=== PATIENT | female | born 1990 | race Hispanic/Latino ===

== ENCOUNTER 2018-12-03 08:53 | Day surgery (SDC) | payer MEDICAID ==
[2018-12-02 15:59] VITALS: BP 136/73
[2018-12-02 16:09] LABS: BASOPHILS % (AUTO) 1.1 % (0.0-5.0); EOSINOPHILS % (AUTO) 1.8 % (0.0-8.0); HEMATOCRIT 41.4 % (36-48); LYMPHOCYTES % (AUTO) 29.1 % (21.0-51.0); MEAN CORPUSCULAR HEMOGLOBIN 27.8 pg (27.0-33.0); MEAN CORPUSCULAR HGB CONC 32.9 g/dL (32.0-36.0); MEAN CORPUSCULAR VOLUME 84.7 fL (79-99); MONOCYTES % (AUTO) 6.2 % (3.0-13.0); NEUTROPHILS % (AUTO) 61.8 % (40.0-77.0); PLATELET COUNT (AUTO) 322 K/uL (130-400); RED BLOOD CELL COUNT(AUTO) 4.88 MIL/uL (4.00-5.50); RED CELL DISTRIBUTION WIDTH 15.2 % (11.0-15.5); WHITE BLOOD COUNT (AUTO) 8.8 K/uL (4.8-10.8)
[2018-12-02 16:11] LABS: APPEARANCE,URINE Clear (CLEAR); BILIRUBIN,URINE Negative (NEGATIVE); COLOR,URINE Yellow (YELLOW); GLUCOSE, URINE (UA) Negative (NEGATIVE); KETONES,URINE Negative (NEGATIVE); LEUKOCYTE ESTERASE ,URINE Trace (NEGATIVE); NITRATE,URINE Negative (NEGATIVE); OCCULT BLOOD,URINE Negative (NEGATIVE); PROTEIN,URINE Negative (NEGATIVE)
[2018-12-02 16:21] LABS: INR 0.92 (0.85-1.15); PROTHROMBIN TIME 9.7 SEC (9.6-11.6)
[2018-12-02 16:25] LABS: BACTERIA,URINE Rare /HPF (None Seen); RBC,URINE 0-1 /HPF (0-1); SQUAMOUS EPITHELIAL CELL,UR Moderate /HPF (0-2)
[2018-12-02 16:27] LABS: ALBUMIN 3.6 g/dL (3.5-5.0); BILIRUBIN,TOTAL 0.2 mg/dL (0.2-1.0); CREATININE 0.9 mg/dL (0.5-1.5); POTASSIUM 3.9 mmol/L (3.5-5.1); TOTAL PROTEIN, SERUM 7.9 g/dL (6.0-8.3)
--- NOTE | 2018-12-02 16:33 | NUR ---
UA INFORMED DR. LE OF ABNORMAL UA. NO ORDERS RECEIVED. PROCEED WITH PLANNED PROCEDURE.
[2018-12-03] VITALS (13 sets, daily range): BP systolic 89–150; BP diastolic 49–92
[~2018-12-03] VITALS: Ht 154.9 cm; Wt 148.1 kg
[~2018-12-03 08:53] MED LIST: CEFAZOLIN 3GM /D5W 100ML 100 ML IV PRN; OMEP40CA37 PO
[2018-12-03] MEDS ORDERED: LACTATED RINGERS 1000ML 1,000 ML IV ONE ×2 (09:00)
[2018-12-03] MEDS: CEFAZOLIN SODIUM 1 GM VIAL ONE ×2 (09:20→10:54)
--- NOTE | 2018-12-03 09:31 | NUR ---
POTENTIAL FOR INFECTION: WIPED LEFT HAND / LOWER ARM PER KATE ONEAL MA WITH RAUDEL: 2% CHLORHEXIDINE GLUCONATE CLOTH PATIENTS PRE-OP SKIN PREP.
[2018-12-03] MEDS ORDERED: LIDOCAINE PF 2% 5ML ABBOJECT ONE (10:01)
[2018-12-03] MEDS ORDERED: ROCURONIUM 10MG/1ML SYR 10 MG/ML ML ONE (10:02)
[2018-12-03] MEDS ORDERED: MIDAZOLAM HCL 1 MG/ML 2ML VIAL ONE (10:02)
[2018-12-03] MEDS ORDERED: PROPOFOL 10 MG/ML 20ML VIAL IV ONE ×2 (10:02→11:04)
[2018-12-03] MEDS ORDERED: FENTANYL CITRATE PF 50 MCG/1 ML 2ML VIAL ONE ×2 (10:02→11:33)
[2018-12-03] MEDS ORDERED: ONDANSETRON HCL 4 MG/2 ML VIAL ONE ×2 (10:03→12:26)
[2018-12-03] MEDS ORDERED: NEOSTIGMINE 5MG/5ML SYR IV ONE (11:37)
[2018-12-03] MEDS ORDERED: GLYCOPYRROLATE 1 MG/5 ML SYRINGE ONE (11:37)
[2018-12-03] MEDS ORDERED: ESMOLOL HCL 10 MG/ML 10 ML VIAL ONE (11:53)
[2018-12-03] MEDS ORDERED: KETOROLAC TROMETHAMINE 30MG/ML ONE (11:53)
[2018-12-03] MEDS ORDERED: MEPERIDINE-PF 25 MG/ML SYG ONE (11:54)
[2018-12-03] MEDS ORDERED: METOCLOPRAMIDE 10 MG/2 ML VIAL ONE (12:26)
--- NOTE | 2018-12-03 12:45 | NUR ---
POST OP RECEIVED PT FROM PACU, S/P LEFT CARPAL TUNNEL RELEASE SX. BULKY DRESSING TO LEFT ARM , NEUROVASCULAR CHECKS TO LEFT HAND WNL. PT AWAKE AND ALERT, NO DISTRESS NOTED. DENIED ANY PAIN OR DISCOMFORTS. ICE PACKS TO AREA. VS STABLE ON ARRIVAL. PT INSTRUCTED TO KEEP LEFT ARM ELEVATED ABOVE HEART LEVEL AT ALL TIMES. FAMILY AT BEDSIDE.
--- NOTE | 2018-12-03 13:10 | NUR ---
dc dc instructions given and reviewed with pt's sister in law. instructed to f/u with dr. norman. photo copy of orders provided to patient/family. left arm dressing dry and intact, neurovascular checks wnl. pt denies any pain or discomforts.
--- NOTE | 2018-12-03 13:20 | NUR ---
dc pt dc home via [place] , no distress noted. accompanied by sister in law.
== END 2018-12-03 13:20 | disposition home or self-care (01) ==
LOC: DAH 08:53
DX: M65.9 Synovitis and tenosynovitis, unspecified (principal); G56.02 Carpal tunnel syndrome, left upper limb; N92.6 Irregular menstruation, unspecified; K21.9 Gastro-esophageal reflux disease without esophagitis; E66.01 Morbid (severe) obesity due to excess calories; Z79.01 Long term (current) use of anticoagulants; Z79.899 Other long term (current) drug therapy; Z90.49 Acquired absence of other specified parts of digestive tract
CPT/HCPCS: 25115; 36415; 64721; 71045; 80053; 81001; 84703; 85025; 85610; 85730; 88304; 93005; A4649; A4930 ×2; A6223; A6446; J0690; J1885; J2001; J2175; J2250; J2405 ×2; J2704 ×2; J2710; J2765; J3010 ×2; J3490 ×2; J7120 ×2

== ENCOUNTER 2019-01-23 06:13 | Day surgery (SDC) | payer MEDICAID, OTHER ==
[2019-01-22 11:24] VITALS: BP 147/83
[~2019-01-23] VITALS: Ht 156.2 cm; Wt 148.4 kg
[2019-01-23] VITALS (17 sets, daily range): BP systolic 110–142; BP diastolic 58–90
[~2019-01-23 06:13] MED LIST changes: -CEFAZOLIN 3GM /D5W 100ML 100 ML IV PRN; +LORA10TA7 PO; +NORG1TAB14 PO
[2019-01-23] MEDS ORDERED: LACTATED RINGERS 1000ML 1,000 ML IV ONE (07:10)
--- NOTE | 2019-01-23 07:20 | NUR ---
POTENTIAL FOR INFECTION: SHAVED RIGHT HAND / LOWER ARM PER CARLY HERNANDEZ, FOLLOWED BY WIPING WITH RAUDEL: 2% CHLORHEXIDINE GLUCONATE CLOTH PATIENTS PRE-OP SKIN PREP.
[2019-01-23] MEDS ORDERED: MIDAZOLAM HCL 1 MG/ML 2ML VIAL ONE (07:21)
[2019-01-23] MEDS ORDERED: LIDOCAINE PF 2% 5ML ABBOJECT ONE (07:21)
[2019-01-23] MEDS ORDERED: LIDOCAINE HCL 4% LTA SOL 4 ML VIAL ONE (07:21)
[2019-01-23] MEDS ORDERED: PROPOFOL 10 MG/ML 20ML VIAL IV ONE (07:21)
[2019-01-23] MEDS ORDERED: FENTANYL CITRATE PF 50 MCG/1 ML 2ML VIAL ONE ×3 (07:22→08:46)
[2019-01-23] MEDS ORDERED: ROCURONIUM 10MG/1ML SYR 10 MG/ML ML ONE (07:22)
[2019-01-23] MEDS ORDERED: PHENYLEPHRINE HCL 10 MG/ML 1ML VIAL IV ONE (07:24)
[2019-01-23] MEDS: CEFAZOLIN SODIUM 1 GM VIAL ONE ×2 (07:24→07:30)
[2019-01-23] MEDS ORDERED: ONDANSETRON HCL 4 MG/2 ML VIAL ONE (07:27)
[2019-01-23] MEDS ORDERED: SUB TO ALBUTEROL 2.5MG/3ML NEBULES PER P&T IH ONE (07:40)
[2019-01-23] MEDS ORDERED: DEXAMETHASONE SOD PHOSPHATE 10MG/ML 1ML VIAL ONE (08:03)
[2019-01-23] MEDS ORDERED: NEOSTIGMINE 5MG/5ML SYR IV ONE (08:04)
[2019-01-23] MEDS ORDERED: GLYCOPYRROLATE 1 MG/5 ML SYRINGE ONE (08:04)
[2019-01-23] MEDS ORDERED: MORPHINE SULFATE 4 MG/1ML SYG ONE (09:32)
--- NOTE | 2019-01-23 09:50 | NUR ---
DR. LE NOTIFIED PT IN PAIN 11/04, RIGHT WRIST. DR. LE WANTS O2 SATS READINGS ON RT HAND. RT HAND SATS 98%, WITH GOOD CAPILLARY REFILL. DR. STEVENS PRESENT TO ASSESS PT. RT HAND ASSESSMENT WNL, DR. LE ORDERED TORADOL 30MG IV, AND DR. STEVENS AGREED. Addendum: 01/23/19 at 1010 by STORMY JOHNSON RN RN Amended: Links added.
[2019-01-23] MEDS ORDERED: KETOROLAC TROMETHAMINE 30MG/ML ONE (09:52)
--- NOTE | 2019-01-23 10:15 | NUR ---
PT'S PAIN LEVEL 3/10. TOLERABLE. CAP REFILL TO RT HAND LESS THAN THREE SECONDS, FINGER WARM TO TACTILE, O2 SATS ON RT HAND 97%. PT STABLE. DR. STEVENS TO SEE PT IN DAY PT, RM 4. Addendum: 01/23/19 at 1025 by STORMY JOHNSON RN RN Amended: Links added.
--- NOTE | 2019-01-23 10:20 | NUR ---
NEURO ASSESSMENTS DONE WITH BRANDIE DAY, DAY PT RM 4. PT HAS CAP REFILL UNDER 3 SECONDS, PT ABLE TO WIGGLE FINGERS, FINGERS WARM TO TACTILE, AND O2 SATS 98 PERCENT ON RT HAND. THIS INFO GIVEN TO DR. STEVENS. BRANDIE DAY INSTRUCTED TO DO NEURO CHECKS ON OPERATIVE HAND. Addendum: 01/23/19 at 1032 by STORMY JOHNSON RN RN Amended: Links added.
--- NOTE | 2019-01-23 11:25 | NUR ---
neuro check done prior to d/c, capillary refill less then 3 sec. pt. able to wiggle fingers, O2 stats at 98% taken on the right hand. pt. left with copy of instruction and f/u appt for [place] at 10:45 am. pt. given d/c instructions as per . pt. left in stable condition via wheel chair in pvt car with daughter in law.
== END 2019-01-23 11:01 | disposition home or self-care (01) ==
LOC: DAH 06:13
DX: M65.831 Other synovitis and tenosynovitis, right forearm (principal); G56.01 Carpal tunnel syndrome, right upper limb; K21.9 Gastro-esophageal reflux disease without esophagitis; E66.01 Morbid (severe) obesity due to excess calories; Z68.44 Body mass index [BMI] 60.0-69.9, adult; Z79.899 Other long term (current) drug therapy; Z90.49 Acquired absence of other specified parts of digestive tract; Z98.890 Other specified postprocedural states; Z82.49 Family history of ischemic heart disease and other diseases of the circulatory system; Z82.3 Family history of stroke
CPT/HCPCS: 25115; 64721; 71045; 81025; 88305; 93005; A4215; A4221; A4222; A4223; A4649; A4663; A4930; A6223; A6446; J0690; J1100; J1885; J2001; J2250; J2270; J2370; J2405; J2704; J2710; J3010 ×3; J3490; J7120; Q4051

== ENCOUNTER 2024-02-27 10:23 | Emergency (ER) | payer BC, MEDICAID ==
[~2024-02-27] VITALS: Ht 154.9 cm; Wt 159.7 kg
[~2024-02-27 10:23] MED LIST changes: +OMEP40CA21 PO; -OMEP40CA37 PO
[2024-02-27 11:19] VITALS: BP 150/79; TEMP 98.2; O2SAT 99
[2024-02-27] MEDS: ALBUTEROL 0.083% 2.5 MG/3 ML INH IH ONE (11:22)
[2024-02-27 11:23] VITALS: PULSE 91; RESP 20
[2024-02-27] MEDS: FAMOTIDINE 20MG TAB PO ONE (11:32)
[2024-02-27] MEDS: acetaMINOPHEN 500 MG TABLET PO ONE (11:32)
[2024-02-27] MEDS ORDERED: DIPH50 PO (11:46)
[2024-02-27] MEDS ORDERED: ALBUHFA IH (11:46)
== END 2024-02-27 12:22 | disposition home or self-care (01) ==
LOC: EDH 10:23
DX: T63.301A Toxic effect of unspecified spider venom, accidental (unintentional), initial encounter (principal); J45.909 Unspecified asthma, uncomplicated; I10 Essential (primary) hypertension; E66.01 Morbid (severe) obesity due to excess calories; Z79.899 Other long term (current) drug therapy; Y93.89 Activity, other specified; Y92.89 Other specified places as the place of occurrence of the external cause; Y99.8 Other external cause status
CPT/HCPCS: 94640